=== PATIENT | male | born 1980 | race Caucasian/White ===

== ENCOUNTER 2017-10-30 23:41 | Emergency (ER) | END 2017-10-31 06:00 | disposition home or self-care (01) ==

== ENCOUNTER 2018-10-17 23:28 | Emergency (ER) | payer MEDICAID ==
[~2018-10-17] VITALS: Ht 172.7 cm; Wt 106.6 kg
[~2018-10-17 23:28] MED LIST: ALBU18HF INHALATION; BENZ-6 PO; DOCU-144 PO; FAMO-96 PO; FER325 PO; HYDR-4011 PO; ONDA4TAB14 PO
[2018-10-17 23:39] VITALS: Ht 172.7 cm; Wt 106.6 kg
--- NOTE | 2018-10-18 04:55 | ERD ---
ER Documentation Chief Complaint Chief Complaint nausea/body aches x 1 week. also c/o painful urination HPI This is a 38-year-old male who presents here in emergency department with compla ints of painful urination, excessive thirst, abdominal discomfort, nausea without vomiting in the last week but got worse today. Denies headache, head injury, loss of consciousness, dizziness, neck pain, neck stiffness, throat pain, difficulty swallowing, difficulty breathing lying flat, shoulder pain, chest pain, back pain, abdominal pain, nausea, vomiting, constipation, diarrhea, loss of bowel and bladder control, trauma, injury, falls, difficulty walking due to pain, numbness or tingling sensation, calf pain, recent travel, recent major surgery in the last 3 weeks, calf pain, recent long travel, recent exposure to any illness, recent antibiotic use in the last 3 months, fever, chills, seizures. Past medical history: Surgical history: Social: Denies smoking, use of alcoholic beverages, use of illegal drugs. ROS All systems reviewed and are negative except as per history of present illness. Medications Home Meds Discontinued Scripts Ondansetron Hcl* (Zofran*) 4 Mg Tablet, 4 MG PO Q8H PRN for NAUSEA AND/OR VOMITING, #30 TAB Prov:VAHE BURCH 10/18/18 Clotrimazole* (Clotrimazole* AF) 1% - 30 Gm Cream.gm., 1 APPLIC TOP BID for 7 Days, TUB Prov:VAHE BURCH F 10/18/18 Metformin* (Glucophage* XR) 500 Mg Tab.sr.24h, 500 MG PO BID, #60 TAB Prov:VAHE BURCH 10/18/18 Ondansetron (Ondansetron Odt) 4 Mg Tab.rapdis, 4 MG PO Q6H PRN for NAUSEA AND/OR VOMITING, #20 TAB Prov:LETI OG NP 10/31/17 Famotidine* (Pepcid*) 20 Mg Tablet, 20 MG PO BID, #20 TAB Prov:LETI OG NP 10/31/17 Hydrocodone/Acetaminophen (Marlette 5-325 Tablet) 1 Each Tablet, 1 TAB PO Q6H PRN for SEVERE PAIN LEVEL 7-10, #20 TAB Prov:LETI OG NP 10/31/17 Benzonatate* (Tessalon Perle*) 100 Mg Capsule, 100 MG PO Q8H PRN for COUGH, #14 CAP Prov:EMILY PATRICIOC 09/06/15 Albuterol Sulfate* (Ventolin HFA*) 18 Gm Hfa.aer.ad, 2 PUFF INHALATION Q4H, #1 INHALER Prov:EMILY PATRICIOC 09/06/15 Docusate Sodium* (Colace*) 100 Mg Capsule, 100 MG PO BID, #30 CAP Prov:EMILY PATRICIO-C 09/06/15 Ferrous Sulfate* (Ferrous Sulfate*) 325 Mg Tabec, 325 MG PO DAILY, #30 TAB Prov:EMILY PATRICIO-C 09/06/15 Allergies Allergies: Coded Allergies: No Known Allergy (Unverified , 10/21/18) PMhx/Soc History of Surgery: Yes (APPENDECTOMY, LEFT EAR SURGERY, LEFT FOOT SURGERY) Anesthesia Reaction: No Hx Neurological Disorder: No Hx Respiratory Disorders: No Hx Cardiac Disorders: No Hx Psychiatric Problems: No Hx Miscellaneous Medical Probl: No Hx Alcohol Use: No Hx Substance Use: No Hx Tobacco Use: No Smoking Status: Never smoker Physical Exam Vitals Physical Exam Const: No acute distress Head: Atraumatic Eyes: Normal Conjunctiva ENT: Normal External Ears, Nose and Mouth. Neck: Full range of motion. No meningismus. Resp: Clear to auscultation bilaterally Cardio: Regular rate and rhythm, no murmurs Abd: Soft, non tender, non distended. Normal bowel sounds. Negative Barbour sign. Negative Terry sign). Negative psoas sign. Negative Rovsing sign. No CVA tenderness. : Penis has appearance of balanitis. No penile strangulation or poor circulation. Bilateral testicular/scrotal areas no swelling/tenderness/discoloration. Ambulatory with steady gait and without pain. Skin: No petechiae or rashes. No skin tenting. No signs of severe dehydration. Back: No midline or flank tenderness Ext: No cyanosis, or edema Neur: Awake and alert. No neurological deficit. Psych: Normal Mood and Affect Results 24 hrs Laboratory Tests Test 10/18/18 05:21 10/18/18 05:23 10/18/18 05:35 10/18/18 06:55 Bedside Glucose 435 mg/dL 457 mg/dL White Blood 7.3 10^3/ul Count Red Blood Count 4.50 10^6/ul Hemoglobin 14.2 g/dl Hematocrit 39.7 % Mean Corpuscular 88.2 fl Volume Mean Corpuscular 31.6 pg Hemoglobin Mean Corpuscular 35.8 g/dl Hemoglobin [place] nt Red Cell 11.1 % Distribution Width Platelet Count 217 10^3/UL Mean Platelet 11.8 fl Volume Immature 0.800 % Granulocytes % Neutrophils % 65.8 % Lymphocytes % 25.0 % Monocytes % 6.9 % Eosinophils % 1.1 % Basophils % 0.4 % Nucleated Red 0.0 /100WBC Blood Cells % Immature 0.060 10^3/ul Granulocytes # Neutrophils # 4.8 10^3/ul Lymphocytes # 1.8 10^3/ul Monocytes # 0.5 10^3/ul Eosinophils # 0.1 10^3/ul Basophils # 0.0 10^3/ul Nucleated Red 0.0 10^3/ul Blood Cells # Urine Color STRAW Urine Clarity CLEAR Urine pH 6.0 Urine Specific 1.031 [place] Urine Ketones 1+ mg/dL Urine Nitrite NEGATIVE mg/dL Urine Bilirubin NEGATIVE mg/dL Urine NEGATIVE mg/dL Urobilinogen Urine Leukocyte NEGATIVE Tanja/ul Esterase Urine 4 /HPF Microscopic RBC Urine 3 /HPF Microscopic WBC Urine Hemoglobin 2+ mg/dL Urine Glucose 3+ mg/dL Urine Total NEGATIVE mg/dl Protein Sodium Level 134 mmol/L Potassium Level 3.9 mmol/L Chloride Level 97 mmol/L Carbon Dioxide 23 mmol/L Level Anion Gap 14 Blood Urea 14 mg/dl Nitrogen Creatinine 0.75 mg/dl Est Glomerular > 60 mL/min Filtrat Rate mL/min Glucose Level 436 mg/dl Hemoglobin A1c 13.0 % Calcium Level 9.1 mg/dl Total Bilirubin 0.4 mg/dl Direct Bilirubin 0.00 mg/dl Indirect 0.4 mg/dl Bilirubin Aspartate Amino 66 IU/L Transf (AST/SGOT ) Alanine 135 IU/L Aminotransferase (ALT/SGPT) Alkaline 284 IU/L Phosphatase Total Protein 7.2 g/dl Albumin 4.0 g/dl Globulin 3.20 g/dl Albumin/Globulin 1.25 Ratio Amylase Level 80 U/L Lipase 369 U/L Blood Gas Blood arterial Specimen Source Arterial Blood 10/18/2018 7:41: Date Drawn 03 AM Arterial Blood 7.379 pH (Temp corrected) Arterial Blood 31.2 mmhg pCO2 (Temp correct) Arterial Blood 102.0 mmHG pO2 (Temp corrected) Arterial Blood 18.0 mmol/L HCO3 Arterial Blood -6.0 mmol/L Base Excess Arterial Blood 97.2 mmHG Oxygen Saturatio n Sumit Test ACCEPTAB Arterial Blood Right Radial Gas Puncture Site Arterial 0.3 % Blood Carboxyhem oglobin Arterial Blood 0.3 % Methemoglobin Blood Gas A-a O2 10.4 mmHg Differential Oxyhemoglobin 96.6 % Percent Blood Gas 37.0 C Temperature Blood Gas ROOM AIR Modality FiO2 21.0 % Blood Gas TM Notified Whom Blood Gas 10/18/2018 7:52: Notified Time 36 AM Test 10/18/18 07:09 10/18/18 11:11 Bedside Glucose 280 mg/dL 251 mg/dL Current Medications Medications Dose Sig/Vahe Start Time Status Last (Trade) Ordered Route PRN Stop Time Admin Dose Reason Admin Sodium 1,000 ml @ Q1H ONCE 10/18/18 DC 10/18/18 Chloride 1,000 mls/hr IV 05:30 05:44 10/18/18 06:29 Ondansetron 4 mg ONCE STAT 10/18/18 DC 10/18/18 HCl (Zofran IV 05:26 05:44 Inj) 10/18/18 05:27 Sodium 1,000 ml @ Q1H STAT 10/18/18 DC 10/18/18 Chloride 1,000 mls/hr IV 06:55 07:15 10/18/18 07:54 Insulin 10 unit ONCE ONCE 10/18/18 DC 10/18/18 Human SC 07:04 07:19 Lispro 10/18/18 07:05 (Humalog) Procedures/MDM This case was discussed with my supervising physician, Dr. Kim Hernandez who recommends ABG, A1c, subcu insulin, recheck of blood sugar then discharge with metformin. Diagnostic tests: Urinalysis: Reviewed. Accu-Chek: Reviewed. Blood works: Reviewed. Treatment: Saline lock. Normal saline IV bolus. Re-evaluation: Denies headache, neck pain, chest pain, abdominal pain. Respirations even and unlabored. Lung sounds are clear to auscultation. No abdominal tenderness. No neurological deficit. Differential diagnosis I have low suspicion for DKA, sepsis. Final diagnosis: New onset diabetes. Prescription: Metformin. Clotrimazole cream. Zofran. Follow-up with PCP in the next 24-48 hours. Come back here in the emergency department for any new symptoms or any worsening symptoms. All questions and concerns were answered. Patient and family members verbalized understanding and agreed with plan of care. Hemodynamically stable on discharge. Endorsed with Dougie Epperson PA-C who agreed to discharge patient and have results are back and if patient is not in DKA. Departure Diagnosis: Primary Impression: Genitourinary symptoms Additional Impressions: Diabetes mellitus, new onset Balanitis Condition: Stable Additional Instructions: Follow-up with PCP in the next 24-48 hours. Come back here in the emergency department for any new symptoms or any worsening symptoms. VAHE BURCH Oct 18, 2018 04:54
[2018-10-18] MEDS ORDERED: ONDANSETRON 4 MG INJ IV STA (05:26)
[2018-10-18] MEDS ORDERED: SOD CHLORIDE 0.9% 1,000 ML IV ONE (05:30)
[2018-10-18] MEDS ORDERED: SOD CHLORIDE 0.9% 1,000 ML IV STA (06:55)
[2018-10-18] MEDS ORDERED: METF500T3 PO (07:02)
[2018-10-18] MEDS ORDERED: CLOT30CR24 TOP (07:02)
[2018-10-18] MEDS ORDERED: ONDA4TAB8 PO (07:03)
[2018-10-18] MEDS ORDERED: INSULIN LISPRO 100 UNIT/ML VIAL SC ONE (07:04)
[2018-10-18 11:21] VITALS: BP 141/84; PULSE 71; RESP 18
== END 2018-10-18 11:25 | disposition home or self-care (01) ==
LOC: FTE 23:28
DX: N48.1 Balanitis (principal); E11.9 Type 2 diabetes mellitus without complications
CPT/HCPCS: 36600; 80053; 81001; 82150; 82803; 82962; 83036; 83690; 85025; 87086; J1815; J2405; J7030; 96372; 96374

== ENCOUNTER 2018-10-21 11:31 | Emergency (ER) | payer MEDICAID ==
[~2018-10-21] VITALS: Ht 172.7 cm; Wt 103.0 kg
[~2018-10-21 11:31] MED LIST changes: +CLOT30CR24 TOP; +METF500T3 PO; +ONDA4TAB8 PO
[2018-10-21 11:35] VITALS: Ht 172.7 cm; Wt 103.0 kg
--- NOTE | 2018-10-21 12:17 | ERD ---
ER Documentation Chief Complaint Chief Complaint CHEST PAIN HPI The patient is a 38-year-old male, presenting to the ER because he has a new onset of left-sided chest pain that began around 12 AM this morning, worse with movement, denies similar symptoms previously. He denies chest pain with vomiting/radiation/exertion/diaphoresis, dyspnea. He complains of abdominal pain after eating intermittently for 1 week, denies dysuria. He smokes and drinks, denies illicit drug He was seen in the ER on October 17, 2018 due to polydipsia and polyuria and was diagnosed with onset diabetes and discharged with metformin. However he has not taken the medication. He saw his doctor today who sent him to the ER. Past medical history: Diabetes mellitus Past surgical history: Appendectomy ROS All systems reviewed and are negative except as per history of present illness. Medications Home Meds Discontinued Scripts Ondansetron Hcl* (Zofran*) 4 Mg Tablet, 4 MG PO Q8H PRN for NAUSEA AND/OR VOMITING, #30 TAB Prov:KIERSTENALLANA Leyva 10/18/18 Clotrimazole* (Clotrimazole* AF) 1% - 30 Gm Cream.gm., 1 APPLIC TOP BID for 7 Days, TUB Prov:VAHE BURCH 10/18/18 Metformin* (Glucophage* XR) 500 Mg Tab.sr.24h, 500 MG PO BID, #60 TAB Prov:JUAN MANUELDENISHAALLANA Leyva 10/18/18 Ondansetron (Ondansetron Odt) 4 Mg Tab.rapdis, 4 MG PO Q6H PRN for NAUSEA AND/OR VOMITING, #20 TAB Prov:LETI OG BUDGET CLERK 10/31/17 Famotidine* (Pepcid*) 20 Mg Tablet, 20 MG PO BID, #20 TAB Prov:LETI OG BUDGET CLERK 10/31/17 Hydrocodone/Acetaminophen ([place] 5-325 Tablet) 1 Each Tablet, 1 TAB PO Q6H PRN for SEVERE PAIN LEVEL 7-10, #20 TAB Prov:LETI OG BUDGET CLERK 10/31/17 Benzonatate* (Tessalon Perle*) 100 Mg Capsule, 100 MG PO Q8H PRN for COUGH, #14 CAP Prov:EMILY PATRICIO PA-C 09/06/15 Albuterol Sulfate* (Ventolin HFA*) 18 Gm Hfa.aer.ad, 2 PUFF INHALATION Q4H, #1 INHALER Prov:SHAHID PATRICIOWALTER Ray PA-C 09/06/15 Docusate Sodium* (Colace*) 100 Mg Capsule, 100 MG PO BID, #30 CAP Prov:SHENGEMILY Ray PA-C 09/06/15 Ferrous Sulfate* (Ferrous Sulfate*) 325 Mg Tabec, 325 MG PO DAILY, #30 TAB Prov:SHAHID PATRICIODORAManpreet Flor MEI 09/06/15 Allergies Allergies: Coded Allergies: No Known Allergy (Unverified , 10/21/18) PMhx/Soc History of Surgery: Yes (APPENDECTOMY, LEFT EAR SURGERY, LEFT FOOT SURGERY) Anesthesia Reaction: No Hx Neurological Disorder: No Hx Respiratory Disorders: No Hx Cardiac Disorders: No Hx Psychiatric Problems: No Hx Miscellaneous Medical Probl: No Hx Alcohol Use: No Hx Substance Use: No Hx Tobacco Use: No Physical Exam Vitals Vital Signs Date Temp Pulse Resp B/P (MAP) Pulse Ox O2 O2 Flow FiO2 Time Delivery Rate 10/21/18 98.4 61 17 135/82 98 Room Air 17:34 (99) 10/21/18 58 19 133/77 97 Room Air 15:00 (95) 10/21/18 67 19 115/73 98 Room Air 13:00 (87) 10/21/18 98.1 89 18 144/83 96 11:35 (103) Physical Exam Const: No acute distress. Head: Atraumatic. Eyes: Normal Conjunctiva. ENT: Normal External Ears, Nose and Mouth. Neck: Full range of motion. No meningismus. Resp: Clear to auscultation bilaterally. Cardio: Regular rate and rhythm. Left sided chest pain with palpation, no crepitus Abd: Soft, non distended, normal bowel sounds, non tender. Skin: No petechiae or rashes. Back: No midline or flank tenderness. Ext: No cyanosis, or edema. Neur: Awake and alert. No focal deficit Psych: Normal Mood and Affect. Result Diagram: 10/21/18 1245 10/21/18 1245 Results 24 hrs Laboratory Tests Test 10/21/18 12:30 10/21/18 12:40 10/21/18 12:45 10/21/18 12:50 Blood Gas Blood venous Specimen Source Arterial Blood 10/21/2018 12:40: Date Drawn 00 PM Arterial Blood VENOUS LINE Gas Puncture Site Sumit Test N/A Venous Blood pH 7.406 Venous Blood 35.7 mmHG pCO2 (Temp Corrected) Venous Blood pO2 56.8 mmHG (Temp Corrected) Venous Blood 21.9 mmol/L HCO3 Venous Blood 90.5 mmHG Oxygen Saturation Venous Blood -2.1 mmol/L Base Excess Venous Blood 15.6 g/dl Total Hemoglobin Venous Blood 90.0 % Oxyhemoglobin Venous Blood 0.2 % Methemoglobin Carboxyhemoglobi 0.3 % n Blood Gas 37.0 C Temperature Blood Gas ROOM AIR Modality FiO2 21.0 % Blood Gas [place] Notified Whom Blood Gas 10/21/2018 12:59: Notified Time 40 PM Urine Color YELLOW Urine Clarity CLEAR Urine pH 6.0 Urine Specific 1.033 [place] Urine Ketones 2+ mg/dL Urine Nitrite NEGATIVE mg/dL Urine Bilirubin NEGATIVE mg/dL Urine NEGATIVE mg/dL Urobilinogen Urine Leukocyte NEGATIVE Tanja/ul Esterase Urine Hemoglobin NEGATIVE mg/dL Urine Glucose 3+ mg/dL Urine Total NEGATIVE mg/dl Protein White Blood 7.1 10^3/ul Count Red Blood Count 4.63 10^6/ul Hemoglobin 14.5 g/dl Hematocrit 41.7 % Mean Corpuscular 90.1 fl Volume Mean Corpuscular 31.3 pg Hemoglobin Mean Corpuscular 34.8 g/dl Hemoglobin [place] nt Red Cell 11.3 % Distribution Width Platelet Count 246 10^3/UL Mean Platelet 11.8 fl Volume Immature 0.800 % Granulocytes % Neutrophils % 69.9 % Lymphocytes % 20.9 % Monocytes % 7.2 % Eosinophils % 0.8 % Basophils % 0.4 % Nucleated Red 0.0 /100WBC Blood Cells % Immature 0.060 10^3/ul Granulocytes # Neutrophils # 4.9 10^3/ul Lymphocytes # 1.5 10^3/ul Monocytes # 0.5 10^3/ul Eosinophils # 0.1 10^3/ul Basophils # 0.0 10^3/ul Nucleated Red 0.0 10^3/ul Blood Cells # Prothrombin Time 12.5 Sec Prothrombin Time 1.0 Ratio INR 0.92 International Normalized Ratio Activated 22.3 Sec Partial Thrombop last Time D-Dimer 286.69 ng/ml D-Dimer Comment Sodium Level 134 mmol/L Potassium Level 4.1 mmol/L Chloride Level 104 mmol/L Carbon Dioxide 22 mmol/L Level Anion Gap 8 Blood Urea 11 mg/dl Nitrogen Creatinine 0.64 mg/dl Est Glomerular > 60 mL/min Filtrat Rate mL/min Glucose Level 286 mg/dl Calcium Level 9.5 mg/dl Phosphorus Level 3.2 mg/dl Magnesium Level 2.1 mg/dl Total Bilirubin 0.6 mg/dl Direct Bilirubin 0.00 mg/dl Indirect 0.6 mg/dl Bilirubin Aspartate Amino 67 IU/L Transf (AST/SGOT ) Alanine 177 IU/L Aminotransferase (ALT/SGPT) Alkaline 131 IU/L Phosphatase Troponin I < 0.012 ng/ml Total Protein 7.1 g/dl Albumin 4.0 g/dl Globulin 3.10 g/dl Albumin/Globulin 1.29 Ratio Lipase 189 U/L Bedside Glucose 271 mg/dL Test 10/21/18 15:16 Troponin I < 0.012 ng/ml Current Medications Medications Dose Sig/Vahe Start Time Status Last (Trade) Ordered Route PRN Stop Time Admin Dose Reason Admin Sodium 1,000 ml @ ONCE ONCE 10/21/18 DC 10/21/18 Chloride 1,000 mls/hr IV 12:30 10/21/18 12:53 13:29 Ketorolac 30 mg ONCE STAT 10/21/18 DC 10/21/18 Tromethamine IV 12:30 10/21/18 12:53 (Toradol) 12:34 Procedures/[place] [address] Radiology Main Line: [phone] DIAGNOSTIC IMAGING REPORT Patient: ANDERSON BOWLES : 1980 Age: 38 Sex: M MR #: [id number] DOS: 10/21/18 1233 Ordering MD: PHIL SANTO MD Location: E/R Room/Bed: PROCEDURE: US Abdomen (Right upper quadrant). CLINICAL INDICATION: Abdominal pain. TECHNIQUE: Multiple real-time longitudinal and transverse images were acquired of the patient's right upper quadrant using a curved array transducer. COMPARISON: 06/11/2018. FINDINGS: Liver: Increased echogenicity. Liver surface is smooth. No focal liver lesion. Portal vein is patent with normal directional flow. Gallbladder/biliary: No gallstones. No gallbladder wall thickening or pericholecystic fluid. No biliary distension. Pancreas: Obscured by bowel gas. Right kidney: No hydronephrosis or nephrolithiasis. Ascites: None. Aorta/IVC: Unremarkable. MEASUREMENTS: Liver: 17.2 cm Common Duct: 0.6 cm Right Kidney: 11.6 cm IMPRESSION: 1. Echogenic liver compatible with nonspecific parenchymal disease, consider steatosis. 2. Mildly distended common bile duct without evidence of cholecystitis or vanessa lithiasis. Distal obstruction is not excluded. Further evaluation with HIDA or MRCP may be obtained. RPTAT: [facility] Physician Jeanne Date Time Electronically viewed and signed by Physician Jeanne on 10/21/2018 13:58 ME/ CC: PHIL SANTO MD [id number] [place] [address] Radiology Main Line: [phone] DIAGNOSTIC IMAGING REPORT Patient: ANDERSON BOWLES : 1980 Age: 38 Sex: M MR #: [id number] DOS: 10/21/18 1230 Ordering MD: PHIL SANTO MD Location: E/R Room/Bed: PROCEDURE: XR Chest. CLINICAL INDICATION: chest pain TECHNIQUE: Single AP view of the chest were obtained COMPARISON: None FINDINGS: The heart and mediastinum are within normal limits. The pulmonary vasculature are unremarkable. The aorta is unremarkable. There is no lung consolidation, pleural effusion or pneumothorax. There is no acute osseous abnormality. IMPRESSION: No acute disease. RPTAT: AA .Aurelio Bhatt MD, Date Time Electronically viewed and signed by .Aurelio Bhatt MD, MD on 10/21/2018 13:39 .J/ CC: PHIL SANTO MD [id number] EKG 11:37 AM: Read by emergency physician Rate/Rhythm: Normal Sinus Rhythm 84 beats per min QRS, ST, T-waves: No ST elevation, no T wave inversion, RWA, inferior Q's Impression: Abnormal EKG EKG 12:38 PM: Read by emergency physician Rate/Rhythm: Normal Sinus Rhythm 70 beats per min QRS, ST, T-waves: No ST elevation, no T wave inversion, RWA, inferior Q's Impression: Abnormal EKG MEDICAL MAKING DECISION: The patient is a 38-year-old male, presenting with acute chest pain, acute hyperglycemia, was treated with Toradol 30 mg IV for pain, 1 L normal saline for acute hyperglycemia with good response. He is stable for outpatient follow-up The differential diagnoses considered include but are not limited to acute coronary syndrome, acute myocardial infarction, pericarditis, pulmonary embolism, aortic dissection, pneumonia, pleural effusion, pneumothorax, GERD, chest wall pain, HHS, DKA. The patient presents with chest pain and I considered pulmonary embolism, aortic dissection, pneumothorax among other diagnoses. Evaluation for acute coronary syndrome was performed. The HEART score (www.mdcalc.com) was utilized for risk stratification and found to be <= 3. Repeat EKG and troponin @ 3 hours were unchanged. Based on this evaluation the patients risk of major adverse cardiac events is <1%. Shared decision making occurred with patient and the decision has been made to discharge the patient for outpatient evaluation and functional study within 72 hours. Departure Diagnosis: Primary Impression: Chest pain Additional Impressions: Hyperglycemia Abnormal LFTs Condition: Good Comments I discussed the findings with the patient. I advised the patient to follow-up with his expediter in about 1-2 days, sooner if needed and return if any concern. The patient's blood pressure was elevated (>120/80) but appears stable without evidence of hypertension emergency or urgency. The patient was counseled about the risks of hypertension and urged to pursue outpatient monitoring and therapy within a week with their primary care physician. Disclaimer: Inadvertent spelling and grammatical errors are likely due to EHR/dictation software use and do not reflect on the overall quality of patient care. Also, please note that the electronic time recorded on this note does not necessarily reflect the actual time of the patient encounter. PHIL SANTO MD Oct 21, 2018 12:17
[2018-10-21] MEDS ORDERED: SOD CHLORIDE 0.9% 1,000 ML IV ONE (12:30)
[2018-10-21] MEDS ORDERED: KETOROLAC 30 MG INJ IV STA (12:30)
[2018-10-21 17:34] VITALS: BP 135/82; PULSE 61; RESP 17
== END 2018-10-21 17:35 | disposition home or self-care (01) ==
LOC: E/R 11:31
DX: R07.9 Chest pain, unspecified (principal); R94.5 Abnormal results of liver function studies; E11.65 Type 2 diabetes mellitus with hyperglycemia; Z79.84 Long term (current) use of oral hypoglycemic drugs
CPT/HCPCS: 36415; 71045; 76705; 80053; 81003; 82803; 82962; 83690; 83735; 84100; 84484; 85025; 85378; 85610; 85730; 93005; 96374; J1885; J7030; Z7502; Z7610